=== PATIENT | male | born 1960 | race Asian ===

== ENCOUNTER 2022-11-21 12:38 | Emergency (ER) | payer OTHER, SELFPAY ==
[2022-11-21] MEDS ORDERED: Morphine 4 MG/ML VIAL ONE (13:14)
[2022-11-21] MEDS ORDERED: Ketorolac Tromethamine 30 MG/ML VIAL ONE (13:14)
== END 2022-11-21 14:24 | disposition home or self-care (01) ==
LOC: ERS 12:38
DX: S70.11XA Contusion of right thigh, initial encounter (principal); E11.9 Type 2 diabetes mellitus without complications; I10 Essential (primary) hypertension; V89.2XXA Person injured in unspecified motor-vehicle accident, traffic, initial encounter; Z87.891 Personal history of nicotine dependence
CPT/HCPCS: 71045; 96372; J1885; J2270